=== PATIENT | male | born 1930 | race Caucasian/White ===

== ENCOUNTER 2020-05-25 11:14 | Outpatient (CLI) | payer MEDICARE, OTHER ==
--- NOTE | 2020-05-25 12:34 | Ultrasound Report ---
PROCEDURE: Retroperitoneal INDICATIONS: NOCTURIA TECHNIQUE: Real-time scanning was performed of the retroperitoneal organs, with image documentation. COMPARISON: None. FINDINGS: Bladder: Prevoid volume 75 cc. Post void residual 20 cc. Prostate measures 2.3 x 4.4 x 2.9 cm. Bilate ral ureteral jets are identified. No bladder luminal masses are identified. IMPRESSION: Unremarkable exam. Reviewed by: Kylah Iyer MD on 05/25/2020 12:32 PM PDT Approved by: Kylah Iyer MD on 05/25/2020 12:32 PM PDT Station ID: [id number]
== END 2020-05-25 11:15 | disposition home or self-care (01) ==
LOC: DI 11:14
PROVIDERS: ATTEND Internal Medicine
DX: R35.1 Nocturia (principal)
CPT/HCPCS: 76770